=== PATIENT | male | born 1975 | race Caucasian/White ===

== ENCOUNTER 2016-08-21 08:04 | Emergency (ER) | payer OTHER ==
[~2016-08-21] VITALS: Ht 165.1 cm; Wt 98.2 kg
[2016-08-21 10:11] VITALS: BP 122/76
== END 2016-08-21 10:11 | disposition home or self-care (01) ==
LOC: ED 08:04
DX: S02.40FA Zygomatic fracture, left side, initial encounter for closed fracture (principal); W22.8XXA Striking against or struck by other objects, initial encounter; Y99.0 Civilian activity done for income or pay; Y93.89 Activity, other specified; Y92.89 Other specified places as the place of occurrence of the external cause

== ENCOUNTER 2020-05-04 01:24 | Emergency (ER) | payer OTHER ==
[~2020-05-04] VITALS: Ht 165.1 cm; Wt 99.3 kg
[2020-05-04 01:38] VITALS: Ht 165.1 cm; Wt 99.3 kg
[2020-05-04 05:06] VITALS: BP 142/85
== END 2020-05-04 05:06 | disposition home or self-care (01) ==
LOC: ED 01:24
DX: S86.912A Strain of unspecified muscle(s) and tendon(s) at lower leg level, left leg, initial encounter (principal); G89.29 Other chronic pain; M25.511 Pain in right shoulder; X50.0XXA Overexertion from strenuous movement or load, initial encounter; Y93.89 Activity, other specified; Y92.89 Other specified places as the place of occurrence of the external cause; Y99.8 Other external cause status
CPT/HCPCS: J1885